=== PATIENT | female | born 1995 | race Caucasian/White ===

== ENCOUNTER 2025-05-11 20:37 | Emergency (ER) | payer MEDICAID ==
[2025-05-11] MEDS ORDERED: Lidocaine 1% w/Epinephrine 1:100K 20 ML VIAL ONE (23:27)
[2025-05-12] MEDS ORDERED: Lidocaine 1% w/Epinephrine 1:100K 20 ML VIAL ONE (00:22)
[2025-05-12] MEDS ORDERED: Bacitracin 1 PK ONE (00:23)
== END 2025-05-12 01:05 | disposition home or self-care (01) ==
LOC: ERS 20:37
DX: S51.812A Laceration without foreign body of left forearm, initial encounter (principal); S00.83XA Contusion of other part of head, initial encounter; V47.5XXA Car driver injured in collision with fixed or stationary object in traffic accident, initial encounter
CPT/HCPCS: 12002; 99283

== ENCOUNTER 2025-05-15 12:19 | Emergency (ER) | payer MEDICAID | END 2025-05-15 15:22 | disposition home or self-care (01) | LOC: ERS 12:19 | DX: S22.32XA Fracture of one rib, left side, initial encounter for closed fracture (principal); S00.93XA Contusion of unspecified part of head, initial encounter; V89.2XXA Person injured in unspecified motor-vehicle accident, traffic, initial encounter | CPT/HCPCS: 70450; 71046 ==